=== PATIENT | male | born 1975 | race Two or more races ===

== ENCOUNTER 2016-10-02 10:28 | Emergency (ER) | payer MEDICAID ==
[~2016-10-02] VITALS: Ht 180.3 cm; Wt 97.0 kg
[~2016-10-02 10:28] MED LIST: ASPI325T4 PO; METO25TA35 PO
[2016-10-02 10:46] VITALS: BP 133/90
[2016-10-02] MEDS ORDERED: KETOROLAC 30 MG/1 ML IM ONE (11:30)
[2016-10-02] MEDS ORDERED: KETOROLAC 30 MG/1 ML ONE (11:32)
[2016-10-02 12:27] LABS: PATH.CAST-FLAG NOT PRESENT; SPERM-FLAG NOT PRESENT; SRC-FLAG NOT PRESENT; XTAL-FLAG NOT PRESENT; YLC-FLAG NOT PRESENT
[2016-10-02] MEDS ORDERED: CEFTRIAXONE 1,000 MG IM ONE (12:30)
[2016-10-02] MEDS ORDERED: CEFTRIAXONE 1,000 MG ONE (12:51)
[2016-10-02] MEDS ORDERED: AZITHROMYCIN 250 MG TABLET ONE (12:51)
[2016-10-02] MEDS ORDERED: AZITHROMYCIN 500 MG TABLET PO ONE (13:00)
== END 2016-10-02 13:26 | disposition home or self-care (01) ==
LOC: ED 12:42
DX: N30.00 Acute cystitis without hematuria (principal); N34.1 Nonspecific urethritis; J45.909 Unspecified asthma, uncomplicated; I48.91 Unspecified atrial fibrillation; N40.0 Benign prostatic hyperplasia without lower urinary tract symptoms; K43.9 Ventral hernia without obstruction or gangrene
CPT/HCPCS: 76870; 81001; 87086; 96372; 99285; J0696; J1885

== ENCOUNTER 2016-12-02 09:49 | Emergency (ER) | payer MEDICAID ==
[~2016-12-02] VITALS: Ht 180.3 cm; Wt 98.7 kg
[~2016-12-02 09:49] MED LIST changes: +ASPI325T17 PO; -ASPI325T4 PO
[2016-12-02 09:54] VITALS: BP 149/80
[2016-12-02] MEDS ORDERED: HYDROcodone/APAP 5/325 TABLET PO PRN (10:30)
[2016-12-02] MEDS ORDERED: KETOROLAC 30 MG/1 ML IM ONE (10:30)
[2016-12-02] MEDS ORDERED: KETOROLAC 30 MG/1 ML ONE (10:45)
[2016-12-02] MEDS ORDERED: HYDROcodone/APAP 5/325 TABLET ONE (10:46)
== END 2016-12-02 11:51 | disposition home or self-care (01) ==
LOC: ED 10:15
DX: M25.532 Pain in left wrist (principal); M25.512 Pain in left shoulder; M25.522 Pain in left elbow; M25.572 Pain in left ankle and joints of left foot; M79.602 Pain in left arm; M79.642 Pain in left hand
CPT/HCPCS: 73030; 73060; 73080; 73090; 73110; 73130; 73610; 73630; 96372; 99284; J1885

== ENCOUNTER 2017-09-29 12:35 | Emergency (ER) | payer MEDICAID, OTHER ==
[~2017-09-29] VITALS: Ht 177.8 cm; Wt 92.6 kg
[2017-09-29 12:43] VITALS: BP 131/88
== END 2017-09-29 13:33 | disposition home or self-care (01) ==
LOC: ED 13:20
DX: Z48.01 Encounter for change or removal of surgical wound dressing (principal)
CPT/HCPCS: 99281

== ENCOUNTER 2018-01-01 19:12 | Emergency (ER) | payer MEDICAID ==
[~2018-01-01] VITALS: Ht 177.8 cm; Wt 91.0 kg
[2018-01-01 19:13] VITALS: BP 137/89
[2018-01-01] MEDS ORDERED: KETOROLAC 30 MG/1 ML IM ONE (20:00)
[2018-01-01] MEDS ORDERED: KETOROLAC 30 MG/1 ML ONE (20:04)
[2018-01-01] MEDS ORDERED: BACITRACIN ZINC OINT 500U/GM, 0.9 GM ONE (20:18)
== END 2018-01-01 20:33 | disposition home or self-care (01) ==
LOC: ED 20:03
DX: M77.9 Enthesopathy, unspecified (principal)
CPT/HCPCS: 29260; 73090; 96372; 99284; J1885

== ENCOUNTER 2018-06-04 17:19 | Emergency (ER) | payer MEDICAID ==
[~2018-06-04] VITALS: Ht 177.8 cm; Wt 90.8 kg
[2018-06-04 17:21] VITALS: BP 148/112
[2018-06-04] MEDS ORDERED: ASPIRIN 81 MG TABLET CHEW PO ONE (17:30)
[2018-06-04] MEDS ORDERED: PLEASE ENTER HEIGHT AND WEIGHT MC SCH (17:30)
[2018-06-04 17:48] LABS: BASOPHILS # (AUTO) 0.03 x10^3/uL (0-0.1); BASOPHILS % (AUTO) 0 % (0-1); EOSINOPHILS # (AUTO) 0.08 x10^3/uL (0-0.4); EOSINOPHILS % (AUTO) 1 % (1-7); LYMPHOCYTES # (AUTO) 1.64 x10^3/uL (1-3.4); LYMPHOCYTES % (AUTO) 22 % (22-44); MD NO; MEAN CORPUSCULAR HEMOGLOBIN 30.2 pg (27.5-34.5); MEAN CORPUSCULAR HGB CONC 34.3 g/dL (33.2-36.2); MEAN CORPUSCULAR VOLUME 87.9 fL (81-97); MEAN PLATELET VOLUME 8.3 fL (7.4-10.4); MONOCYTES # (AUTO) 0.28 x10^3/uL (0.2-0.8); MONOCYTES % (AUTO) 4 % (2-9); NEUTROPHILS % (AUTO) 73 % (42-75); PLATELET COUNT 219 x10^3/uL (130-400); RED BLOOD COUNT 6.03 x10^6/uL (4.38-5.82); RED CELL DISTRIBUTION WIDTH 13.2 % (9.4-14.8)
[2018-06-04 18:00] LABS: ANION GAP 4 mmol/L (5-15); CALCIUM 8.9 mg/dL (8.5-10.1); CHLORIDE 108 mmol/L (98-107); CREATININE 1.03 mg/dL (0.7-1.3)
[2018-06-04 18:04] LABS: TROPONIN I < 0.015 ng/mL (0.000-0.045)
--- NOTE | 2018-06-04 20:14 | NUR ---
pt to room from lobby
--- NOTE | 2018-06-04 20:18 | NUR ---
not in lobby
--- NOTE | 2018-06-04 20:55 | NUR ---
not in lobby
== END 2018-06-04 21:09 | disposition left against medical advice (07) ==
LOC: ED 21:00
DX: R06.00 Dyspnea, unspecified (principal); R07.89 Other chest pain; I48.91 Unspecified atrial fibrillation
CPT/HCPCS: 36415; 71046; 80048; 82040; 84484; 85025; 93005; 99284